=== PATIENT | female | born 1950 | race Caucasian/White ===

== ENCOUNTER 2017-02-20 09:50 | Day surgery (SDC) | payer MEDICARE ==
--- NOTE | 2017-02-19 16:32 | HP ---
PREOPERATIVE HISTORY AND PHYSICAL: DATE OF ADMISSION/SURGERY: 02/20/17 DATE OF OFFICE VISIT/ENCOUNTER: 02/19/17 ATTENDING SURGEON: Dori Russell MD * (DICTATED BY LUIS A PARSON) PROCEDURE: Excision of mass, right long finger. CHIEF COMPLAINT: Mass, right long finger. HISTORY OF PRESENT ILLNESS: This is a 66-year-old female who complains of a small mass at the DIP joint of her right long finger. It has been present for approximately 6 weeks or so. 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 However, the cyst has been persistent and despite the fact that it spontaneously drained with that episode back on 02/04/17 and also the patient has drained the cyst herself, it continues to be present. It is painful when she bumps it and it is quite bothersome when she is using her right hand. She does a lot of things with her hands including gardening, musical instrument playing, knitting, and kilt making. She is interested in having this cyst removed. PAST MEDICAL HISTORY: Neuropathy in bilateral feet, cause unknown. PAST SURGICAL HISTORY: 1. Parathyroidectomy. 2. Surgery on the left index finger. 3. External fixator of the left wrist secondary to fracture. MEDICATIONS: None. ALLERGIES: CODEINE causes mild pruritus. FAMILY MEDICAL HISTORY: Lupus and Crohn's disease. SOCIAL HISTORY: The patient is not currently working but is very active. She plays music. 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 She is a nonsmoker. She denies recreational drug use and drinks alcohol very limitedly. REVIEW OF SYSTEMS: General: Negative for fevers, chills, or night sweats. No known anesthesia problems. HEENT: Negative for headache, lightheadedness, or syncopal episodes. Integumentary: Negative for abrasions, lesions, or open wounds. Cardiothoracic: Negative for hypertension, chest pain, palpitations, or edema. Pulmonary: Negative for shortness of breath with exertion, chronic cough, COPD. GI: Negative for nausea, vomiting, diarrhea, constipation, or GERD. : Negative for nocturia, urinary frequency, urgency, history of UTIs, or kidney problems. Musculoskeletal: Positive for current complaint. Negative for chronic or intermittent back pain or history of fractures. Neurological: Negative for paresthesias, numbness, history of seizure, stroke, or epilepsy. Endocrine: Negative for diabetes or thyroid issues. Hematologic: Negative for easy bruising, anemia, excessive bleeding, or history of DVT. Infectious Disease: Negative for history of MRSA, hepatitis C, or HIV. PHYSICAL EXAM: GENERAL: Well-developed, well-nourished 66-year-old female in no acute distress. VITAL SIGNS: Height 5 feet 6 inches, weight 185 pounds, pulse rate 70, blood pressure 124/76. HEENT: Normocephalic, atraumatic. Pupils are equal, round, and reactive to light and accommodation. Extraocular movements are intact. Throat is clear. NECK: Supple. No palpable lymph nodes. PULMONARY: Lungs are clear to auscultation bilaterally. No wheezes, rales, or rhonchi. CARDIOVASCULAR: Regular rate and rhythm. S1, S2. No murmurs, rubs, or gallops. No edema. ABDOMEN: Positive bowel sounds. Soft, nontender. MUSCULOSKELETAL: On exam of her left hand and the long finger in particular, there is a cyst-like structure located at the DIP joint. There is a small scab but there is no active drainage, it is tender to palpation. Neurovascular function is intact. Otherwise, skin is intact. There is no erythema. NEUROLOGICAL: Alert and oriented x3. Cranial nerves II through XII are intact. Sensation is intact to light touch. DIAGNOSTIC STUDIES/LAB DATA: Imaging studies of the left hand show scattered arthritic changes throughout her fingers including distal interphalangeal joint of the long finger. IMPRESSION: Right long finger mass, likely mucus cyst. PLAN: The patient is scheduled to undergo an excision of the mass right long finger with Dr. Russell on 02/20/17. She will return to the office in 10 to 14 days postop for followup and suture removal. A prescription for Ultracet was e- scribed to the patient's pharmacy for postoperative pain management. LUIS A PARSON [id number]/[facility] #: [id number] ELVIA
[~2017-02-20 09:50] MED LIST: Acetaminophen TAB* 325 MG PO PRN; Buffered Lidocaine 0.9% SYRIN* 5 ML/SYR SYRINGE INTRADERM ONE; DiMENhydriNATE IV* 50 MG/ML VIAL IV PUSH PRN; Famotidine IV* 10 MG/ML 2 ML (20 mg) IV ONE; Famotidine IV* 10 MG/ML 2 ML (20 mg) ONE
[2017-02-20] MEDS ORDERED: fentaNYL* 50 MCG/ML 2 ML VIAL (100 MCG VIAL) ONE (10:25)
[2017-02-20] MEDS ORDERED: Midazolam* 1 MG/ML 5 ML VIAL (5 MG) ONE (10:25)
[2017-02-20] MEDS ORDERED: Lidocaine 1% INJ* 10 MG/ML 30 ML SDV ONE (12:46)
[2017-02-20] MEDS ORDERED: Ondansetron INJ* 2 MG/ML VIAL ONE (13:09)
[2017-02-20] MEDS ORDERED: Ketorolac INJ* 30 MG/ML 1 ML VIAL ONE (13:09)
[2017-02-20] MEDS ORDERED: Lidocaine 2% PF * 5 ML VIAL ONE (13:09)
[2017-02-20] MEDS ORDERED: Propofol* 10 MG/ML 20 ML BTL IV PUSH ONE (13:09)
[2017-02-20 13:37] VITALS: BP 121/68
--- NOTE | 2017-02-21 07:28 | OP ---
CC: Dr. Russell OPERATIVE REPORT: DATE OF OPERATION: 02/20/17 - JEY DATE OF : 50 SURGEON: Dori Russell MD. CNC MACHINIST 2ND SHIFT: LUIS A Escobar. ANESTHESIOLOGIST: Sully De La Cruz MD. ANESTHESIA: Local MAC. PRE-OP DIAGNOSIS: Right long finger mass. POST-OP DIAGNOSIS: Right long finger mass. OPERATIVE PROCEDURE: Excised right long finger mass. INDICATIONS: Zuleima is a 66-year-old female with a painful mass on the dorsal aspect of the DIP joint of her right middle finger. She presents for removal. ESTIMATED BLOOD LOSS: Zero. TOURNIQUET TIME: About 10 minutes. DESCRIPTION OF PROCEDURE: The patient was brought to the operating room and was given a digital block with 10 cc of 1% plain lidocaine after a sedation anesthetic. The skin of her right upper extremity was prepped and draped in the usual sterile fashion. The hand and forearm were exsanguinated and the tourniquet elevated to 250 mmHg. An H-shaped incision was made on the dorsal aspect of the DIP joint to the right middle finger. The skin flaps were carefully elevated off the extensor tendon and over the ganglion cyst. The cyst was then carefully dissected away from the nail bed and the extensor tendon and traced with its stalk down to the DIP joint. Either side of the extensor tendon was incised longitudinally and the underlying osteophytes were removed with a rongeur. The wound was irrigated and skin edges reapproximated with 4-0 nylon suture. The wound was dressed with Xeroform, 4x4, Webril, and a Coban. The patient was brought to the recovery room in good condition. [id number]/[facility] #: [id number] MTDD
== END 2017-02-20 14:03 | disposition home or self-care (01) ==
LOC: OREAST 09:50
PROVIDERS: ATTEND Orthopaedic Surgery
DX: R22.31 Localized swelling, mass and lump, right upper limb (principal); M25.741 Osteophyte, right hand; Z88.5 Allergy status to narcotic agent
CPT/HCPCS: 88305; J1885; J2001; J2250; J2405; J2704; J3010

== ENCOUNTER 2018-10-26 07:12 | Emergency (ER) | payer MEDICARE ==
[2018-10-26 07:27] VITALS: BP 132/77
--- NOTE | 2018-10-26 07:53 | UC ---
UC General HPI - HPI Summary HPI Summary: Past few days patient has felt malaise, run down. Throat is irritated, mild cough and congestion. Has had nausea and decrease PO. No vomiting or diarrhea. Subjective fever. 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 Concern about returning. Has had ongoing issues with a gum/ dental infection that she is being followed by her dentist for. Not currently on antibiotics for them. Meds: REviewed - History of Current Complaint Chief Complaint: UCGeneralIllness Stated Complaint: SORE THROAT Time Seen by Provider: 10/26/18 07:29 Pain Intensity: 2 - Allergy/Home Medications Allergies/Adverse Reactions: Allergies Allergy/AdvReac Type Severity Reaction Status Date / Time No Known Allergies Allergy Verified 10/26/18 07:28 PMH/Surg Hx/FS Hx/Imm Hx Previously Healthy: Yes - Surgical History Surgical History: Yes Surgery Procedure, Year, and Place: LEFT WRIST SURGERY. THYROID SURGERY - Social History Alcohol Use: Rare Substance Use Type: None Smoking Status (MU): Never Smoked Tobacco Have You Smoked in the Last Year: No Review of Systems All Other Systems Reviewed And Are Negative: Yes Constitutional: Positive: Fever ENT: Positive: Sore Throat, Sinus Congestion Gastrointestinal: Positive: Nausea Physical Exam Triage Information Reviewed: Yes Appearance: Well-Appearing Vital Signs: Initial Vital Signs Temp 97.5 F 10/26/18 07:22 Pulse 81 10/26/18 07:22 Resp 18 10/26/18 07:22 BP 132/77 10/26/18 07:22 Pulse Ox 94 10/26/18 07:22 ENT: Positive: Pharyngeal erythema, Nasal congestion, TM dull, Other - mild erythema in upper right gum region - per patient present for the past month Neck: Positive: Supple, Nontender Respiratory: Positive: Lungs clear, Normal breath sounds Cardiovascular: Positive: RRR, No Murmur Course/Dx - Course Course Of Treatment: This is a 68 yr old who presenst with malaise and sore throat Assessment Nontoxic appearing Rapid strep test was negative Viral syndrome Recommend rest, fluids and can try ibuprofen as needed for pain/fever as directed Consider allergy medication such as zyrtec and nasal spray such as flonase for allergy symptoms If symptoms persist or worsen, recommend follow up with your PCP or return to urgent care - Diagnoses Provider Diagnosis: Viral syndrome Discharge - Sign-Out/Discharge Documenting (check all that apply): Patient Departure All imaging exams completed and their final reports reviewed: No Studies - Discharge Plan Condition: Good Disposition: HOME Patient Education Materials: Viral Syndrome (ED) Referrals: Tu Tam CLINICAL NURSING COORDINATOR [Primary Care Provider] - Additional Instructions: Rapid strep test was negative Viral syndrome Recommend rest, fluids and can try ibuprofen as needed for pain/fever as directed Consider allergy medication such as zyrtec and nasal spray such as flonase for allergy symptoms If symptoms persist or worsen, recommend follow up with your PCP or return to urgent care - Billing Disposition and Condition Condition: GOOD Disposition: Home
== END 2018-10-26 07:55 | disposition home or self-care (01) ==
LOC: UCEAST 07:12
DX: B34.9 Viral infection, unspecified (principal)
CPT/HCPCS: 87651; 99211; G0463